=== PATIENT | male | born 1990 | race Caucasian/White ===

== ENCOUNTER 2019-03-23 17:19 | Emergency (ER) | payer OTHER ==
[2019-03-23 17:32] VITALS: BP 139/90; PULSE 86; RESP 18; TEMP 98
--- NOTE | 2019-03-23 18:45 | ED ---
General Adult HPI - General Chief complaint: Recheck/Abnormal Lab/Rx Stated complaint: Needle stick-[facility] Time Seen by Provider: 03/23/19 17:36 Source: patient Mode of arrival: ambulatory Limitations: no limitations - History of Present Illness Initial comments: Patient is a 28-year-old male presenting to the emergency Department with complaints of a needle scratch today. 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 Patient states it did not puncture through the skin but there was a scratch daquan. Patient does know the source. Patient denies any other complaints at this time. Review of Systems ROS Statement: Those systems with pertinent positive or pertinent negative responses have been documented in the HPI. ROS Other: All systems not noted in ROS Statement are negative. Past Medical History Past Medical History: No Reported History History of Any Multi-Drug Resistant Organisms: None Reported Past Surgical History: No Surgical Hx Reported Past Psychological History: No Psychological Hx Reported Smoking Status: Never smoker Past Alcohol Use History: None Reported Past Drug Use History: None Reported General Exam - General Exam Comments Initial Comments: GENERAL: Well-appearing, well-nourished and in no acute distress. HEAD: Atraumatic, normocephalic. EYES: Pupils equal round and reactive to light, extraocular movements intact, sclera anicteric, conjunctiva are normal. ENT: TMs normal, nares patent, oropharynx clear without exudates. Moist mucous membranes. NECK: Normal range of motion, supple without lymphadenopathy or JVD. LUNGS: Breath sounds clear to auscultation bilaterally and equal. No wheezes rales or rhonchi. HEART: Regular rate and rhythm without murmurs, rubs or gallops. ABDOMEN: Soft, nontender, normoactive bowel sounds. No guarding, no rebound. No masses appreciated. : Deferred EXTREMITIES: Normal range of motion, no pitting or edema. No clubbing or cyanosis. NEUROLOGICAL: Cranial nerves II through XII grossly intact. Normal speech, normal gait. PSYCH: Normal mood, normal affect. SKIN: Warm, Dry, normal turgor, no rashes or lesions noted. Patient has a very superficial scratch daquan to the left distal thumb, palmar aspect. There is no puncture wounds present. There is no surrounding erythema or edema. Limitations: no limitations Course Vital Signs 03/23/19 03/23/19 17:29 19:00 Temperature 98 F Pulse Rate 86 Respiratory 18 18 Rate Blood Pressure 139/90 O2 Sat by Pulse 97 Oximetry Medical Decision Making - Medical Decision Making Patient is a 20-year-old male presenting with a needle scratch to the left thumb. 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 Patient's blood work was sent to the lab as well as the source his blood work. Patient will follow-up for results. Patient declined HIV prophylaxis at this time. Return parameters were discussed with the patient and he verbalized understanding. Patient is stable for discharge. Disposition Clinical Impression: Needle stick injury of finger of left hand Disposition: HOME SELF-CARE Condition: Stable Instructions (If sedation given, give patient instructions): Needle Stick Injuries (ED) Additional Instructions: Please return to the Emergency Department if symptoms worsen or any other concerns. Follow-up as needed Is patient prescribed a controlled substance at d/c from ED?: No Referrals: Jacobo Morales MD [Primary Care Provider] - 1-2 days
== END 2019-03-23 19:01 | disposition home or self-care (01) ==
LOC: EC 17:19
DX: S60.312A Abrasion of left thumb, initial encounter (principal); W46.0XXA Contact with hypodermic needle, initial encounter; Y93.89 Activity, other specified; Y99.0 Civilian activity done for income or pay
CPT/HCPCS: 99282

== ENCOUNTER → 2019-12-19 | Outpatient (CLI) | payer MEDICAID | END | disposition home or self-care (01) | LOC: LABWHC1 09:24 | PROVIDERS: ATTEND Pediatrics Pediatric Infectious Diseases | DX: U07.1 COVID-19 (principal) | CPT/HCPCS: 87635 ==

== ENCOUNTER 2020-02-09 17:55 | Emergency (ER) | payer MEDICAID ==
[2020-02-09 18:08] VITALS: BP 164/97; PULSE 114; RESP 18; TEMP 98.2
--- NOTE | 2020-02-09 18:51 | CT ---
EXAMINATION TYPE: CT brain anupam miles DATE OF EXAM: 02/09/2020 COMPARISON: None HISTORY: Fall and head injury. CT DLP: 1652.[address] Brain: Unenhanced CT of the brain was performed. The ventricles, basal cisterns and sulci overlying the cerebral convexities demonstrate a normal appe arance. There is no evidence for intracranial hemorrhage or sulcal effacement. No mass effects are seen. If symptoms persist consider MRI. Osseous calvarium is intact. IMPRESSION: No acute intracranial process CT Cervical Spine: Unenhanced CT of the cervical spine was performed with bone and soft tissue window settings submitted . Coronal and sagittal reconstruction is obtained. There is normal alignment and prevertebral soft tissues. I do not see evidence for fracture or sublu xation. No significant degenerative changes are present. The lung apices are clear. IMPRESSION: No evidence for acute fracture or subluxation of the cervical spine.
--- NOTE | 2020-02-09 19:10 | ED ---
Head Injury HPI - General Chief complaint: Head Injury Stated complaint: Fall, head injury Time Seen by Provider: 02/09/20 18:15 Source: patient Mode of arrival: ambulatory Limitations: no limitations - History of Present Illness Initial comments: Patient is a 29-year-old male presenting to the emergency room with a chief complaint of fall. Patient states he was using his lecture skateboard when he fell and injured his head. Patient reports a contusion to the left parietal region of the head. Patient also reports multiple abrasions in the face as well as his left shoulder. Patient denies any pain in his extremities and has full range of motion in his shoulders or any other joints. Patient states he is able to ambulate. Patient reports he possibly lost conscious, he is not completely sure. This was an unwitnessed event. Patient reports he felt "out of it" for about an hour after the incident. Patient is not on blood thinners. Denies one-sided weakness or paresthesias. Denies any visual changes. - Related Data Allergies/Adverse reactions: Allergies Allergy/AdvReac Type Severity Reaction Status Date / Time No Known Allergies Allergy Verified 02/09/20 18:08 Review of Systems ROS Statement: Those systems with pertinent positive or pertinent negative responses have been documented in the HPI. ROS Other: All systems not noted in ROS Statement are negative. Past Medical History Past Medical History: No Reported History History of Any Multi-Drug Resistant Organisms: None Reported Past Surgical History: No Surgical Hx Reported Past Psychological History: No Psychological Hx Reported Smoking Status: Never smoker Past Alcohol Use History: None Reported Past Drug Use History: None Reported General Exam Limitations: no limitations General appearance: alert, in no apparent distress Head exam: Present: normocephalic, normal inspection. Absent: atraumatic (Contusion in the left parietal region. Multiple abrasions in the face.), other (Negative Post sign, hemotympanum, raccoon eyes.) Eye exam: Present: normal appearance, PERRL, EOMI Pupils: Present: normal accommodation ENT exam: Present: normal exam, normal oropharynx, mucous membranes moist, TM's normal bilaterally, normal external ear exam Neck exam: Present: normal inspection, full ROM. Absent: tenderness, meningismus Respiratory exam: Present: normal lung sounds bilaterally. Absent: respiratory distress, wheezes, rales Cardiovascular Exam: Present: regular rate, normal rhythm, normal heart sounds Extremities exam: Present: full ROM, normal capillary refill, other (+2 ulnar radial pulses bilaterally.). Absent: normal inspection (Abrasion noted in the left shoulder.), tenderness Back exam: Present: normal inspection, full ROM. Absent: tenderness, CVA ten derness (L), muscle spasm, paraspinal tenderness Neurological exam: Present: alert, oriented X3, CN II-XII intact, normal gait Psychiatric exam: Present: normal affect, normal mood. Absent: depressed Skin exam: Present: warm, dry, intact, normal color Course Vital Signs 02/09/20 18:06 Temperature 98.2 F Pulse Rate 114 H Respiratory 18 Rate Blood Pressure 164/97 O2 Sat by Pulse 99 Oximetry Medical Decision Making - Medical Decision Making Patient is a 29-year-old male presenting to the emergency department with a chief complaint of a fall. The lecture skateboard fall with an injury to the left parietal region. On exam patient has a contusion of the scalp to the left parietal region. Multiple abrasions also noted. CT of the brain C-spine is unremarkable. Now blood thinners. Tetanus up-to-date. Case discussed with physician. Return parameters were discussed with physician patient was understanding and agreeable. Patient declining analgesia. Suspect a concussion. Patient advised to have mental physical rest for next 5 days. Disposition Clinical Impression: Concussion, Head injury, Contusion of scalp Disposition: HOME SELF-CARE Condition: Stable Instructions (If sedation given, give patient instructions): Concussion (ED) Additional Instructions: Follow with primary care. Attempt to have physical and mental rest for next 5 days. Return to emergency department if symptoms worsen. Is patient prescribed a controlled substance at d/c from ED?: No Referrals: Jacobo Morales MD [Primary Care Provider] - 1-2 days Time of Disposition: 19:10
== END 2020-02-09 19:19 | disposition home or self-care (01) ==
LOC: EC 17:55
DX: S06.0X0A Concussion without loss of consciousness, initial encounter (principal); S00.03XA Contusion of scalp, initial encounter; S00.81XA Abrasion of other part of head, initial encounter; S40.212A Abrasion of left shoulder, initial encounter; V00.131A Fall from skateboard, initial encounter; Y93.51 Activity, roller skating (inline) and skateboarding; Y92.89 Other specified places as the place of occurrence of the external cause
CPT/HCPCS: 70450; 72125; 99284

== ENCOUNTER 2020-04-10 08:05 | Emergency (ER) | payer MEDICAID ==
--- NOTE | 2020-04-10 08:22 | ED ---
General Adult HPI - General Chief complaint: Abdominal Pain Stated complaint: Abd Pain Time Seen by Provider: 04/10/20 08:05 Source: patient, RN notes reviewed, old records reviewed Mode of arrival: ambulatory Limitations: no limitations - History of Present Illness Initial comments: This is a 29-year-old male who presents emergency Department complaining of epigastric abdominal pain. Patient states it started 5:30 this morning and it feels like a cramp. Patient states the crampy feeling has been continuous since he woke up. Patient denies any fever chills. Patient denies any nausea vomiting or diarrhea. Patient denies any prior surgeries. Patient denies any medical problems. Patient states the pain is about 5 out of 10 in intensity. Patient states he took some Pepto-Bismol before he came in and it did not help at all. Patient states she's been having normal bowel movements up until last night. Patient states that he is passing gas. - Related Data Home Medications Medication Instructions Recorded Confirmed Ibuprofen [Motrin Ib] 400 mg PO DAILY PRN 04/10/20 04/10/20 Allergies Allergy/AdvReac Type Severity Reaction Status Date / Time No Known Allergies Allergy Verified 04/10/20 08:43 Review of Systems ROS Statement: Those systems with pertinent positive or pertinent negative responses have been documented in the HPI. ROS Other: All systems not noted in ROS Statement are negative. Past Medical History Past Medical History: No Reported History History of Any Multi-Drug Resistant Organisms: None Reported Past Surgical History: No Surgical Hx Reported Past Psychological History: No Psychological Hx Reported Smoking Status: Never smoker Past Alcohol Use History: None Reported Past Drug Use History: None Reported General Exam - General Exam Comments Initial Comments: GENERAL: Patient is well-developed and well-nourished. Patient is nontoxic and well- hydrated and is in mild distress. ENT: Neck is soft and supple. No significant lymphadenopathy is noted. Oropharynx is clear. Moist mucous membranes. Neck has full range of motion without eliciting any pain. EYES: The sclera were anicteric and conjunctiva were pink and moist. Extraocular movements were intact and pupils were equal round and reactive to light. Eyelids were unremarkable. PULMONARY: Unlabored respirations. Good breath sounds bilaterally. No audible rales rhonchi or wheezing was noted. CARDIOVASCULAR: There is a regular rate and rhythm without any murmurs gallops or rubs. ABDOMEN: Soft and nontender with normal bowel sounds. I found no area of tenderness on palpation. SKIN: Skin is clear with no lesions or rashes and otherwise unremarkable. NEUROLOGIC: Patient is alert and oriented x3. Cranial nerves II through XII are grossly intact. Motor and sensory are also intact. Normal speech, volume and content. Symmetrical smile. MUSCULOSKELETAL: Normal extremities with adequate strength and full range of motion. No lower ex tremity swelling or edema. No calf tenderness. LYMPHATICS: No significant lymphadenopathy is noted PSYCHIATRIC: Normal psychiatric evaluation. Limitations: no limitations Course Vital Signs 04/10/20 08:07 Temperature 98.2 F Pulse Rate 93 Respiratory 17 Rate Blood Pressure 155/105 O2 Sat by Pulse 99 Oximetry Medical Decision Making - Medical Decision Making Gallbladder ultrasound showed gallstones but no signs of acute cholecystitis. Patient states while he was in their he's felt pain when the a/c technician was pressing in the right upper quadrant but he did not identify that to the building energy retrofit technician. Patient states currently he is pain-free. - Lab Data Result diagrams: 04/10/20 08:22 04/10/20 08:22 Lab Results 04/10/20 04/10/20 04/10/20 Range/Units 08:22 08:22 08:22 WBC 9.7 (3.8-10.6) k/uL RBC 6.03 H (4.30-5.90) m/uL Hgb 16.6 (13.0-17.5) gm/dL Hct 50.9 (39.0-53.0) % MCV 84.4 (80.0-100.0) fL MCH 27.6 (25.0-35.0) pg MCHC 32.7 (31.0-37.0) g/dL RDW 13.1 (11.5-15.5) % Plt Count 327 (150-450) k/uL Neutrophils % 64 % Lymphocytes % 22 % Monocytes % 8 % Eosinophils % 3 % Basophils % 1 % Neutrophils # 6.2 (1.3-7.7) k/uL Lymphocytes # 2.2 (1.0-4.8) k/uL Monocytes # 0.8 (0-1.0) k/uL Eosinophils # 0.3 (0-0.7) k/uL Basophils # 0.1 (0-0.2) k/uL Sodium 140 (137-145) mmol/L Potassium 3.9 (3.5-5.1) mmol/L Chloride 105 (98-107) mmol/L Carbon Dioxide 26 (22-30) mmol/L Anion Gap 9 mmol/L BUN 10 (9-20) mg/dL Creatinine 0.83 (0.66-1.25) mg/dL Est GFR (CKD-EPI)AfAm >90 (>60 ml/min/1.73 sqM) Est GFR (CKD-EPI)NonAf >90 (>60 ml/min/1.73 sqM) Glucose 113 H (74-99) mg/dL Calcium 9.4 (8.4-10.2) mg/dL Total Bilirubin 0.8 (0.2-1.3) mg/dL AST 25 (17-59) U/L ALT 31 (4-49) U/L Alkaline Phosphatase 89 (38-126) U/L Total Protein 7.6 (6.3-8.2) g/dL Albumin 4.7 (3.5-5.0) g/dL Amylase 45 (30-110) U/L Lipase 60 (23-300) U/L Urine Color Yellow Urine Appearance Clear (Clear) Urine pH 5.5 (5.0-8.0) Ur Specific [place] 1.016 (1.001-1.035) Urine Protein Negative (Negative) Urine Glucose (UA) Negative (Negative) Urine Ketones Negative (Negative) Urine Blood Negative (Negative) Urine Nitrite Negative (Negative) Urine Bilirubin Negative (Negative) Urine Urobilinogen <2.0 (<2.0) mg/dL Ur Leukocyte Esterase Negative (Negative) Disposition Clinical Impression: Biliary colic, Gallstones Disposition: HOME SELF-CARE Condition: Good Is patient prescribed a controlled substance at d/c from ED?: No Referrals: Svetlana Davis MD [Primary Care Provider] - 1-2 days Time of Disposition: 09:30
[2020-04-10 08:40] LABS: Appearance,Urine Clear (Clear); Bilirubin,Urine Negative (Negative); Blood,Urine Negative (Negative); Color,Urine Yellow; Glucose,Urine (UA) Negative (Negative); Ketones,Urine Negative (Negative); Leukocyte Esterase,Urine Negative (Negative); Nitrite,Urine Negative (Negative); PH, Urine 5.5 (5.0-8.0); Protein,Urine Negative (Negative); Specific Gravity,Urine 1.016 (1.001-1.035); Urobilinogen,Urine <2.0 mg/dL (<2.0)
[2020-04-10 08:54] LABS: ALT 31 U/L (4-49); AST 25 U/L (17-59); African American GFR (CKD) >90 (>60 ml/min/1.73 sqM); Albumin 4.7 g/dL (3.5-5.0); Alkaline Phosphatase 89 U/L (38-126); Amylase 45 U/L (30-110); Anion Gap 9 mmol/L; Blood Urea Nitrogen 10 mg/dL (9-20); Calcium 9.4 mg/dL (8.4-10.2); Carbon Dioxide 26 mmol/L (22-30); Chloride 105 mmol/L (98-107); Glucose 113 mg/dL (74-99); Non-African American GFR(CKD) >90 (>60 ml/min/1.73 sqM); Potassium 3.9 mmol/L (3.5-5.1); Sodium 140 mmol/L (137-145); Total Bilirubin 0.8 mg/dL (0.2-1.3); Total Protein 7.6 g/dL (6.3-8.2)
[2020-04-10 08:58] LABS: Basophils # (A) 0.1 k/uL (0-0.2); Basophils % (A) 1 %; Eosinophils # (A) 0.3 k/uL (0-0.7); Eosinophils % (A) 3 %; HCT 50.9 % (39.0-53.0); HGB 16.6 gm/dL (13.0-17.5); Lymphocytes # (A) 2.2 k/uL (1.0-4.8); Lymphocytes % (A) 22 %; MCH 27.6 pg (25.0-35.0); MCHC 32.7 g/dL (31.0-37.0); MCV 84.4 fL (80.0-100.0); Mean Platelet Volume 7.3; Monocytes # (A) 0.8 k/uL (0-1.0); Monocytes % (A) 8 %; Neutrophils # (A) 6.2 k/uL (1.3-7.7); Neutrophils % (A) 64 %; Platelet Count 327 k/uL (150-450); RBC 6.03 m/uL (4.30-5.90); RDW 13.1 % (11.5-15.5); WBC 9.7 k/uL (3.8-10.6)
--- NOTE | 2020-04-10 09:23 | US ---
EXAMINATION TYPE: US gallbladder DATE OF EXAM: 04/10/2020 COMPARISON: NONE CLINICAL HISTORY: Right upper quadrant abdominal pain Pain. EXAM MEASUREMENTS: Liver Length: 18.4 cm Gallbladder Wall: .2 cm CBD: .6 cm Right Kidney: 10.4 x 4.1 x 3.8 cm Pancreas: Obscured by bowel gas Liver: Upper limits. Gallbladder: Stones seen. Evidence for sonographic Carrero's sign: No CBD: wnl Right Kidney: wnl Visualized pancreas unremarkable on initial 2 images. IVC seen hepatic dome. Visualized liver shows n o worrisome mass or ductal dilatation. Gallbladder shows few mobile shadowing gallstones. No perichol ecystic fluid or abnormal gallbladder wall thickening. Sonographic Carrero sign noted negative. No rig ht-sided hydronephrosis. IMPRESSION: Shadowing mobile gallstones without secondary ultrasound evidence for acute cholecystitis . In patient with right upper quadrant pain however it can not be entirely excluded. Need to further investigate with HIDA scan should be based on clinical correlation.
[2020-04-10 10:30] VITALS: BP 140/88; PULSE 81; RESP 18; TEMP 98.1
== END 2020-04-10 10:15 | disposition home or self-care (01) ==
LOC: EC 08:05
DX: K80.50 Calculus of bile duct without cholangitis or cholecystitis without obstruction (principal); K80.20 Calculus of gallbladder without cholecystitis without obstruction
CPT/HCPCS: 36415; 76705; 80053; 81003; 82150; 83690; 85025; 99284

== ENCOUNTER → 2020-04-17 | Outpatient (CLI) | payer MEDICAID ==
--- NOTE | 2020-04-17 15:08 | NM ---
EXAMINATION TYPE: NM hepatobiliary w EF DATE OF EXAM: 04/17/2020 COMPARISON: Gallbladder ultrasound 1 week ago. HISTORY: Calculus of gallbladder per order. Abdominal pain for patient. TECHNIQUE: After the intravenous administration of 4.22 mCi Tc 99m Mebrofenin hepatobiliary scintigra phy is performed. Immediate images post injection. FINDINGS: There is satisfactory initial accumulation of tracer by the liver. The gallbladder is visualized wit hin 15 minutes. The small bowel activity is noted within 60 minutes. At one hour 8 ounces of oral e nsure plus is given to mimic CCK and gallbladder ejection fraction is calculated at 79 %, in the norm al range. Therefore there is no scintigraphic evidence of cystic or common bile duct obstruction to suggest acute cholecystitis or gallbladder dyskinesia. IMPRESSION: Exam is within normal limits.
== END | disposition home or self-care (01) ==
LOC: RADNMMAIN 12:50
PROVIDERS: ATTEND Internal Medicine
DX: K80.20 Calculus of gallbladder without cholecystitis without obstruction (principal)
CPT/HCPCS: 78226; A9537

== ENCOUNTER 2020-06-18 08:27 | Day surgery (SDC) | payer MEDICAID ==
[2020-06-15 08:36] VITALS: BMI 27.6
[~2020-06-18 08:27] MED LIST: ACETAMINOPHEN TAB 500 MG TAB PO ONE; DEXAMETHASONE SOD PHOSPHATE 4 MG/ML 1 ML VIAL IV ONE; HEPARIN SODIUM,PORCINE 5,000 UNIT/ML 1 ML VIAL SQ ONE; HYDROmorphone 0.5 MG/0.5 ML SYRINGE IVP PRN; LACTATED RINGERS 1,000 ML IV SCH; MIDAZOLAM 2 MG/2 ML VIAL IV PRN; ONDANSETRON 4 MG/2 ML VIAL IVP ONE; SCOPOLAMINE 1.5MG/72HR PATCH TRANSDERM ONE
[2020-06-18] MEDS ORDERED: GLYCOPYRROLATE 0.2 MG/ML 2 ML VIAL ONE (09:52)
[2020-06-18] MEDS ORDERED: NEOSTIGMINE 1 MG/ML 10 ML VIAL ONE (09:52)
[2020-06-18] MEDS ORDERED: fentaNYL (PF) 50 MCG/ML 2 ML AMP ONE (09:52)
[2020-06-18] MEDS ORDERED: ROCURONIUM 10 MG/ML (10 ML VIAL) IV ONE (09:52)
[2020-06-18] MEDS ORDERED: MIDAZOLAM 2 MG/2 ML VIAL ONE (09:52)
[2020-06-18] MEDS ORDERED: LIDOCAINE 1% INJ 10MG/ML (20 ML MDV) ONE (09:52)
[2020-06-18] MEDS ORDERED: SUCCINYLCHOLINE CHLORIDE 100 MG/5 ML SYR IV ONE (09:52)
[2020-06-18] MEDS ORDERED: PROPOFOL 10 MG/ML 20 ML VIAL IV ONE (09:52)
[2020-06-18] MEDS ORDERED: BUPIVACAINE (PF) 0.25% 30 ML VIAL SQ ONE ×2 (10:17→10:46)
[2020-06-18] MEDS ORDERED: LACTATED RINGERS 1,000 ML IV ONE (10:48)
[2020-06-18] MEDS ORDERED: NALOXONE 0.4 MG/ML 1 ML VIAL IV PRN (10:59)
[2020-06-18] MEDS ORDERED: HYDROcodone/APAP 5-325MG 1 EACH TAB PO PRN (10:59)
--- NOTE | 2020-06-18 11:02 | P.OP ---
Date of Procedure: 06/18/20 Procedure(s) Performed: PREOPERATIVE DIAGNOSIS: Chronic cholecystitis POSTOPERATIVE DIAGNOSIS: Same PROCEDURE: Laparoscopic cholecystectomy SURGEON: Reyes EBL: Minimal see anesthesia record ANESTHESIA: Gen. COMPLICATIONS: None OPERATIVE PROCEDURE: The patient was brought and placed on the operating room table in the supine position. The patient was placed under general anesthesia at that time. The abdomen was prepped and draped in the usual sterile fashion. A small vertical infraumbilical incision was made. The fascia was grasped with the Zoila forceps. The fascia was retracted anteriorly. The Veress needle was advanced into the peritoneal cavity. The saline drop test was normal. Insufflation took place up to 15 mmHg. A 5 mm optical trocar was advanced and the peritoneal cavity. 2 additional 5 mm trochars were placed in the right upper quadrant under direct visualization. A 12 mm trocar was advanced into the epigastric incision site. The gallbladder was retracted superiorly and laterally. The peritoneum overlying the infundibulum was bluntly dissected. The patient's cystic duct was visualized. The junction between the cystic duct common and hepatic duct was identified. The cystic duct was then divided after placement of 3 12 mm clips on the patient's side and one on the specimen side. The cystic artery was identified and clipped as well. A small vessel was seen along the gallbladder fossa and clipped as well. The gallbladder was then removed from the liver bed using electrocautery. The gallbladder was then removed from the epigastric trocar site with an Endo Catch bag. The gallbladder fossa was irrigated with saline. There was no evidence of any bleeding or biliary drainage seen. The fascia at the 12 millimeter site was closed using a Jose David-Ellyn 0 Vicryl stitch. The trochars were then removed. The skin at all 4 sites was closed using a 4-0 Monocryl stitch. Skin glue was utilized on the incision sites. At the end of this procedure the sponge and needle counts were correct. DISPOSITION: Stable to the recovery room
[2020-06-18 11:11] VITALS: TEMP 96.8
[2020-06-18] MEDS ORDERED: ONDANSETRON 4 MG/2 ML VIAL IVP ONE (11:34)
[2020-06-18] MEDS ORDERED: KETOROLAC 15 MG/ML 1 ML VIAL IVP ONE (11:44)
[2020-06-18] MEDS ORDERED: diphenhydrAMINE 50 MG/ML 1 ML VIAL ONE (12:36)
[2020-06-18] MEDS ORDERED: diphenhydrAMINE 50 MG/ML 1 ML VIAL IVP ONE (12:39)
[2020-06-18 13:01] VITALS: BP 133/83; PULSE 85; RESP 15
== END 2020-06-18 13:29 | disposition home or self-care (01) ==
LOC: OR 08:27
PROVIDERS: ATTEND Surgery
DX: K80.10 Calculus of gallbladder with chronic cholecystitis without obstruction (principal); Z98.890 Other specified postprocedural states; Z82.49 Family history of ischemic heart disease and other diseases of the circulatory system; Z80.8 Family history of malignant neoplasm of other organs or systems
CPT/HCPCS: 88304; 47562; J2250; J1200; J1644; J1100; J2710; J0690; J2405; J2001; J3010; J1885; J0330; J2704

== ENCOUNTER → 2020-07-19 | Outpatient (CLI) | payer MEDICAID ==
[2020-07-19 09:38] LABS: Basophils # (A) 0.1 k/uL (0-0.2); Basophils % (A) 1 %; Eosinophils # (A) 0.3 k/uL (0-0.7); Eosinophils % (A) 4 %; HCT 49.9 % (39.0-53.0); HGB 16.4 gm/dL (13.0-17.5); Lymphocytes # (A) 2.2 k/uL (1.0-4.8); Lymphocytes % (A) 27 %; MCHC 32.9 g/dL (31.0-37.0); MCV 84.9 fL (80.0-100.0); Mean Platelet Volume 6.8; Monocytes # (A) 0.6 k/uL (0-1.0); Monocytes % (A) 7 %; Neutrophils # (A) 4.9 k/uL (1.3-7.7); Neutrophils % (A) 60 %; Platelet Count 300 k/uL (150-450); RBC 5.88 m/uL (4.30-5.90); WBC 8.2 k/uL (3.8-10.6)
[2020-07-19 17:08] LABS: African American GFR (CKD) 116.5 (60.0-200.0); Albumin 4.7 g/dL (3.80-4.90); Albumin/Globulin Ratio 2.04 (1.60-3.17); Anion Gap 9.8 mmol/L (4.00-12.00); Calcium 9.7 mg/dL (8.7-10.3); Carbon Dioxide 26.2 mmol/L (21.6-31.8); Globulin 2.3 g/dL (1.6-3.3); Non-African American GFR(CKD) 100.5 (60.0-200.0); Potassium 4.2 mmol/L (3.5-5.5); Total Bilirubin 0.5 mg/dL (0.3-1.2)
== END | disposition home or self-care (01) ==
LOC: LABWHC1 09:01
PROVIDERS: ATTEND Internal Medicine
DX: R21 Rash and other nonspecific skin eruption (principal)
CPT/HCPCS: 36415; 80053; 85025; 86038; 86160; 86162; 86431

== ENCOUNTER → 2021-06-22 | Outpatient (CLI) | payer MEDICAID ==
[2021-06-22 16:40] LABS: Basophils # (A) 0.07 X 10*3/uL (0.00-0.10); Basophils % (A) 0.8 %; Eosinophils # (A) 0.24 X 10*3/uL (0.04-0.35); Eosinophils % (A) 2.7 %; HCT 50.7 % (39.6-50.0); HGB 16.3 g/dL (13.0-17.0); Lymphocytes # (A) 2.58 X 10*3/uL (0.90-5.00); Lymphocytes % (A) 29.5 %; MCH 27.8 pg (27.0-32.0); MCHC 32.1 g/dL (32.0-37.0); MCV 86.4 fL (80.0-97.0); Mean Platelet Volume 9.3 fL (9.5-12.2); Monocytes # (A) 0.85 X 10*3/uL (0.20-1.00); Monocytes % (A) 9.7 %; Neutrophils # (A) 4.98 X 10*3/uL (1.80-7.70); Platelet Count 310 X 10*3/uL (140-440); RBC 5.87 X 10*6/uL (4.40-5.60); RDW 13.3 % (11.5-14.5); WBC 8.75 X 10*3/uL (4.50-10.00)
[2021-06-22 18:36] LABS: ALT 41 U/L (10-49); AST 23 U/L (14-35); African American GFR (CKD) 131.9 (60.0-200.0); Albumin 4.8 g/dL (3.8-4.9); Albumin/Globulin Ratio 1.97 (1.60-3.17); Alkaline Phosphatase 95 U/L (41-126); BUN/Creat Ratio 9.03 Ratio (12.00-20.00); Blood Urea Nitrogen 8.1 mg/dL (9.0-27.0); Calcium 9.8 mg/dL (8.7-10.3); Carbon Dioxide 26.3 mmol/L (21.6-31.8); Chloride 101 mmol/L (96-109); Chol/HDL Ratio 5.21 Ratio; Globulin 2.4 g/dL (1.6-3.3); Glucose 94 mg/dL (70-110); LDL Cholesterol,Calculated 146.4 mg/dL (0.0-131.0); Non-African American GFR(CKD) 113.8 (60.0-200.0); Potassium 4.4 mmol/L (3.5-5.5); Sodium 138 mmol/L (135-145); Total Protein 7.2 g/dL (6.2-8.2); VLDL Calculation 16.78 mg/dL (5.00-40.00)
== END | disposition home or self-care (01) ==
LOC: LABWHC1 09:39
PROVIDERS: ATTEND Internal Medicine
DX: Z00.00 Encounter for general adult medical examination without abnormal findings (principal); E55.9 Vitamin D deficiency, unspecified
CPT/HCPCS: 36415; 80053; 80061; 82306; 84443; 85025

== ENCOUNTER → 2023-02-13 | Outpatient (CLI) | payer MEDICAID ==
[2023-02-13 14:22] LABS: Appearance,Urine Clear (Clear); Bilirubin,Urine Negative (Negative); Blood,Urine Negative (Negative); Color,Urine Light Yellow; Glucose,Urine (UA) Negative (Negative); Ketones,Urine Negative (Negative); Leukocyte Esterase,Urine Negative (Negative); Nitrite,Urine Negative (Negative); Protein,Urine Negative (Negative); Specific Gravity,Urine 1.012 (1.001-1.035); Urobilinogen,Urine <2.0 mg/dL (<2.0)
[2023-02-13 21:03] LABS: ALT 28 U/L (10-49); AST 18 U/L (14-35); Albumin/Globulin Ratio 1.72 Ratio (1.60-3.17); Alkaline Phosphatase 106 U/L (41-126); Amylase 31 U/L (23-121); BUN/Creat Ratio 10.89 Ratio (12.00-20.00); Blood Urea Nitrogen 9.8 mg/dL (9.0-27.0); Calcium 10.4 mg/dL (8.7-10.3); Carbon Dioxide 26.6 mmol/L (21.6-31.8); Chloride 102 mmol/L (96-109); Globulin 2.9 d/dL (1.6-3.3); Glucose 93 mg/dL (70-110); Lipase 28 U/L (14-60); Magnesium 2.2 mg/dL (1.5-2.4); Potassium 4.7 mmol/L (3.5-5.5); Sodium 142 mmol/L (135-145); T4, Free (Free Thyroxine) 1.33 ng/dL (0.80-1.80); Total Bilirubin 0.4 mg/dL (0.3-1.2); Total Protein 7.9 d/dL (6.2-8.2)
[2023-02-13 21:45] LABS: Basophils # (A) 0.05 X 10*3/uL (0.00-0.10); Basophils % (A) 0.5 %; Eosinophils # (A) 0.25 X 10*3/uL (0.04-0.35); Eosinophils % (A) 2.7 %; HCT 53.4 % (39.6-50.0); HGB 17.2 d/dL (12.0-15.0); Lymphocytes # (A) 2.89 X 10*3/uL (0.90-5.00); MCH 27.8 pg (27.0-32.0); MCHC 32.2 d/dL (32.0-37.0); MCV 86.4 FL (80.0-97.0); Mean Platelet Volume 10.1 FL (9.5-12.2); Monocytes # (A) 0.76 X 10*3/uL (0.20-1.00); Monocytes % (A) 8.1 %; NRBC Per 100 WBC 0 X 10*3/uL (0.00-0.01); Neutrophils # (A) 5.36 X 10*3/uL (1.80-7.70); Neutrophils % (A) 57.5 %; Platelet Count 321 X 10*3/uL (140-440); RBC 6.18 X 10*6/uL (4.40-5.60); RDW 13.2 % (11.5-14.5); WBC 9.33 X 10*3/uL (4.50-10.00)
== END | disposition home or self-care (01) ==
LOC: LABWHC1 12:04
PROVIDERS: ATTEND Internal Medicine
DX: Z00.00 Encounter for general adult medical examination without abnormal findings (principal); E55.9 Vitamin D deficiency, unspecified; R00.1 Bradycardia, unspecified; R79.9 Abnormal finding of blood chemistry, unspecified
CPT/HCPCS: 36415; 80053; 81003; 82150; 83036; 83690; 83721; 83735; 84439; 84443; 85025